=== PATIENT | male | born 1970 | race Caucasian/White ===

== ENCOUNTER 2024-02-11 06:19 | Day surgery (SDC) | payer OTHER, SELFPAY ==
[2024-01-29 08:52] VITALS: BMI 25.7
[2024-01-29 09:59] LABS: Hematocrit 38.4 % (39.0-52.0); Hemoglobin 12.8 g/dL (13.0-18.0); Mean Corp Hgb Conc. 33.3 g/dL (33.0-37.0); Mean Corpuscular Hgb 30.4 pg (27.0-31.0); Mean Corpuscular Volume 91.2 fL (80.0-94.0); Mean Platelet Volume 8.5 fL (7.4-10.4); Platelet Count 276 10^3/uL (130-400); Red Blood Cell Count 4.21 10^6/uL (4.70-6.10); Red Cell Dist. Width 11.9 % (11.5-14.5)
[2024-02-11 09:04] VITALS: BP 113/71
[2024-02-11] MEDS: NORMOSOL-R 1000 IV (09:14)
[2024-02-11 09:25] VITALS: BMI 25.7
[2024-02-11 12:35] VITALS: BP 113/71; BP 122/69
[2024-02-11 12:45] VITALS: BP 116/77
[2024-02-11 13:00] VITALS: BP 111/61
[2024-02-11 13:15] VITALS: BP 115/76
[2024-02-11 13:45] VITALS: BP 100/56
== END 2024-02-11 14:00 | disposition home or self-care (01) ==
LOC: SDS 06:19
PROVIDERS: ATTENDING PHYSICIAN Otolaryngology; FAMILY PHYSICIAN Family Medicine
DX: J34.2 Deviated nasal septum (principal); J34.3 Hypertrophy of nasal turbinates; J34.89 Other specified disorders of nose and nasal sinuses
CPT/HCPCS: 30520; 30140; 36415; 85027; 93005